=== PATIENT | female | born 2000 | race Asian ===

== ENCOUNTER 2022-11-10 07:50 | Emergency (ER) | payer OTHER, SELFPAY ==
[2022-11-10 07:59] VITALS: BP 123/96; PULSE 112; RESP 18; TEMP 36.8; O2SAT 97; BMI 20.8
[2022-11-10] MEDS: diphenhydrAMINE 25 MG CAPSULE 50 MG PO (09:43)
--- NOTE | 2022-11-10 09:44 | PC.NURSE ---
pt waiting for taxi and requesting meds as she feels she is worse, noted redness is improved from when she was in the room, did take her first dose of steroid, benadryl given
--- NOTE | 2022-11-10 11:49 | ED.GENADULT ---
HPI - General Adult General Date Seen: 11/10/22 Chief complaint: Allergic Reaction Stated complaint: Allergic reactions/unknown cause Time Seen by Provider: 11/10/22 08:10 Source: patient Mode of arrival: ambulatory Limitations: no limitations History of Present Illness HPI narrative: Patient is a 22-year-old, [employer] student from [place]. She has underlying eczema which it sounds like is fairly severe, she always has rash on her arms, neck, to some degree on her face. She says that symptoms got which worse over the past few days, and since 2:00 a.m. in the morning she has had swelling develop on her face. No new medications are exposure to anything that she knows of. No breathing difficulties. She has been taking Claritin, but symptoms have not improved. She says that she has seen a site head in [place] but it has been many years. She does not use anything for her eczema. She does have underlying asthma as well. Related Data Previous Rx's Medication Instructions Recorded triamcinolone acetonide 0.1 % 1 applic topical BID #30 grams 11/10/22 topical cream Allergies Allergy/AdvReac Type Severity Reaction Status Date / Time No Known Drug Allergies Allergy Verified 11/10/22 08:01 Review of Systems Status of ROS: Reports: 6 or more systems reviewed and unremarkable except as noted in History and below [facility] Social History Smoking Status: Never smoker How often do you have a drink containing alcohol: monthly or less AUDIT-C Alcohol total score: 1 Non-prescribed substance use: denies use service: No Exam Narrative: Exam Narrative: Vital signs as noted above. In general, an alert, nontoxic young woman. Head: Normocephalic, atraumatic. Eyes: She has swelling of upper and lower lids bilaterally. ENT: Mucous membranes are moist. Throat is normal. No intraoral edema. Airways patent. Neck: Supple without lymphadenopathy. No stridor. Heart: Regular rate and rhythm. No murmur or rub. Lungs: Clear bilaterally. No increased work of breathing, crackles or wheezes. Abdomen: Soft and nontender. No organomegaly. Extremities: Well perfused. No edema. No calf tenderness. Pulses intact. Neurologic: Patient is alert and oriented to person and place. Speech is fluent. Face is symmetric. Moves all extremities equally. Affect: Normal. Skin: She has a rash consistent with fairly severe eczema on the flexor surfaces of her arms bilaterally, she has rash over her neck and she has erythema over her face associated with diffuse edema. The skin is somewhat thickened diffusely over her neck, this appears somewhat chronic. Const: Vital Signs, click to edit/add: Vital Signs - 24 hr 11/10/22 07:59 Temperature 98.2 F Pulse Rate [Right Pulse Oximeter] 112 H Respiratory Rate 18 Blood Pressure [Ri ght Upper Arm] 123/96 H Pulse Oximetry 97 Oxygen Delivery Me thod Room Air Documenting provider has reviewed patient's vital signs: yes Course Course Hospital Course: I gave her Benadryl 50 mg orally here. We set her up for an appointment with Dermatology in November, in the meantime I am going to put her on prednisone and I gave her a topical steroid as well. She does not have any evidence of airway edema, she does have fairly diffuse angioedema of her eyes and facial swelling in general. She has clearly fairly significant eczema which is poorly managed at this point, facial swelling it may be related to an allergy verses underlying eczema. Return for worsening, otherwise derm follow-up. Suggested that she take pictures of her skin that she can show to dermatology assuming she improves in the meantime. Vital Signs Vital signs: Initial Vital Signs Temperature 98.2 F 11/10/22 07:59 Temperature Source Temporal Artery Scan 11/10/22 07:59 Pulse Rate 112 H 11/10/22 07:59 Respiratory Rate 18 11/10/22 07:59 Blood Pressure 123/96 H 11/10/22 07:59 Blood Pressure Mean 105 11/10/22 07:59 Blood Pressure Position Sitting 11/10/22 07:59 Pulse Oximetry 97 11/10/22 07:59 Oxygen Delivery Method 11/10/22 07:59 Vital Signs Temperature 98.2 F 11/10/22 07:59 Pulse Rate 112 H 11/10/22 07:59 Respiratory Rate 18 11/10/22 07:59 Blood Pressure 123/96 H 11/10/22 07:59 Pulse Oximetry 97 11/10/22 07:59 Oxygen Delivery Method 11/10/22 07:59 Temperature 98.2 F 11/10/22 07:59 Pulse Rate 112 H 11/10/22 07:59 Respiratory Rate 18 11/10/22 07:59 Blood Pressure 123/96 H 11/10/22 07:59 Pulse Oximetry 97 11/10/22 07:59 Oxygen Delivery Method 11/10/22 07:59 Discharge Plan Discharge Clinical Impression: Angioedema, Eczema Condition: Stable Instructions: Eczema (ED), Angioedema (ED) Additional Instructions: Take prednisone as follows: 3 tabs daily for 3 days, then 2 tabs daily for 3 days, then 1 tab daily for 3 days. Continue Claritin, consider Zyrtec as it is slightly stronger. Can use topical steroid for up to 2 weeks on your chest/arms; avoid on face until you see dermatology for recommendations. I would suggest taking pictures of your skin before starting these medications as you will likely improve and it would be good to be able to show your skin when it it flaring up. Appointment scheduled for you with Dermatology for ThursdayDecember 09 at 9:10am Prescriptions: New triamcinolone acetonide 0.1 % cream 1 applic topical BID Qty: 30 0RF Stand Alone Forms: [employer] Info Instructions
== END 2022-11-10 09:45 | disposition home or self-care (01) ==
LOC: ED 08:54
PROVIDERS: Emergency Provider Emergency Medicine
DX: T78.3XXA Angioneurotic edema, initial encounter (principal); L30.9 Dermatitis, unspecified
CPT/HCPCS: 99283; 99284; A9270